=== PATIENT | male | born 1965 | race Two or more races ===

== ENCOUNTER 2018-05-21 09:57 | Outpatient (CLI) | payer OTHER | END 2018-05-21 16:21 | disposition home or self-care (01) | LOC: RAD 09:57 | DX: M25.561 Pain in right knee (principal); M25.562 Pain in left knee; M25.572 Pain in left ankle and joints of left foot ==

== ENCOUNTER 2019-04-20 11:42 | Outpatient (CLI) | payer OTHER | END 2019-04-20 12:53 | disposition home or self-care (01) | LOC: MRI 11:42 | DX: M25.562 Pain in left knee (principal); S83.204A Other tear of unspecified meniscus, current injury, left knee, initial encounter | CPT/HCPCS: 73721 ==

== ENCOUNTER 2020-07-04 08:48 | Outpatient (CLI) | payer OTHER | END 2020-07-04 09:02 | disposition home or self-care (01) | LOC: RAD 08:48 | PROVIDERS: ATTEND Physical Medicine & Rehabilitation Hospice and Palliative Medicine | DX: M25.511 Pain in right shoulder (principal); M75.41 Impingement syndrome of right shoulder; M75.101 Unspecified rotator cuff tear or rupture of right shoulder, not specified as traumatic ==

== ENCOUNTER 2022-05-07 10:06 | Outpatient (CLI) | payer OTHER | END 2022-05-07 10:18 | disposition home or self-care (01) | LOC: RAD 10:06 | PROVIDERS: ATTEND Physical Medicine & Rehabilitation Hospice and Palliative Medicine | DX: M54.2 Cervicalgia (principal) ==

== ENCOUNTER 2022-09-02 10:30 | Outpatient (CLI) | payer OTHER | END 2022-09-02 10:48 | disposition home or self-care (01) | LOC: SONOGRAMA 10:30 | PROVIDERS: ATTEND Physical Medicine & Rehabilitation Hospice and Palliative Medicine | DX: M75.101 Unspecified rotator cuff tear or rupture of right shoulder, not specified as traumatic (principal); M75.102 Unspecified rotator cuff tear or rupture of left shoulder, not specified as traumatic; M19.011 Primary osteoarthritis, right shoulder; M19.012 Primary osteoarthritis, left shoulder ==